=== PATIENT | female | born 1970 | race American Indian/Alaskan Native ===

== ENCOUNTER 2017-04-08 22:45 | Emergency (ER) | payer SELFPAY ==
[2017-04-08] MEDS ORDERED: NACL 0.9% 1000 ML 1,000 ML IV ONE (23:22)
[2017-04-08] MEDS ORDERED: BENADRYL IV ONE (23:22)
[2017-04-08] MEDS ORDERED: ZOFRAN IV ONE (23:22)
[2017-04-08] MEDS ORDERED: SUBLIMAZE IV ONE (23:22)
[2017-04-08] MEDS ORDERED: PEPCID IV ONE (23:27)
--- NOTE | 2017-04-08 23:27 | Emergency Department Report ---
HPI - General Chief Complaint: Abdominal Pain Time Seen by Provider: 04/08/17 23:12 - HPI HPI: Room 39 The patient is a 46-year-old female presenting with a chief complaint of abdominal pain. The patient states for the past 4 days she has had a constant pain in the upper abdomen is burning in nature associated with nausea vomiting. Patient denies diarrhea. Patient denies fever. The patient went to [facility] yesterday and states she had a plain film x-ray and labs performed. Patient was diagnosed with tramadol and Zofran she states this has not helped her symptoms Location: Upper abdomen Duration: [see above] Quality: [see above] Severity: [see above] Modifying factors: [see above] Context: [see above] Mode of transportation: [not driving] ED Past Medical Hx - Past Medical History Previous Medical History?: No - Surgical History Past Surgical History?: No - Family History Family history: no significant - Social History Smoking Status: Current Every Day Smoker Substance Use Type: None - Medications Home Medications: Home Medications Medication Instructions Recorded Confirmed Last Taken Type Ciprofloxacin HCl [Ciprofloxacin 500 mg PO Q12HR #20 tab 04/09/17 Unknown Rx TAB] Docusate Sodium [Colace] 100 mg PO BID PRN #30 capsule 04/09/17 Unknown Rx HYDROcodone/APAP 5-325 [[place] 1 - 2 each PO Q6HR PRN #20 tablet 04/09/17 Unknown Rx 5/325] Promethazine [Phenergan TAB] 25 mg PO Q6HR PRN #20 tab 04/09/17 Unknown Rx Promethazine [Phenergan] 25 mg [place] Q6HR PRN #10 supp.rect 04/09/17 Unknown Rx metroNIDAZOLE [Flagyl] 500 mg PO Q8HR #30 tablet 04/09/17 Unknown Rx ED Review of Systems ROS: Stated complaint: ABD PAIN Other details as noted in HPI Comment: All other systems reviewed and negative Constitutional: denies: fever Eyes: denies: eye pain, eye discharge, vision change ENT: denies: ear pain, throat pain Respiratory: denies: cough, shortness of breath, wheezing Cardiovascular: denies: chest pain, palpitations Endocrine: no symptoms reported Gastrointestinal: abdominal pain, nausea, vomiting. denies: diarrhea Genitourinary: denies: urgency, dysuria, discharge Musculoskeletal: denies: back pain, joint swelling, arthralgia Skin: denies: rash, lesions Neurological: denies: headache, weakness, paresthesias Psychiatric: denies: anxiety, depression Hematological/Lymphatic: denies: easy bleeding, easy bruising Physical Exam - Physical Exam Vital Signs: Vital Signs 04/08/17 23:03 Temperature 98.8 F Pulse Rate 79 Respiratory 26 H Rate Blood Pressure 135/73 O2 Sat by Pulse 96 Oximetry Physical Exam: GENERAL: The patient is well-developed well-nourished female lying on stretcher appearing to be in moderate discomfort. HEENT: Normocephalic. Atraumatic. Extraocular motions are intact. Patient has moist mucous membranes. NECK: Supple. Trachea midline CHEST/LUNGS: Clear to auscultation. There is no respiratory distress noted. HEART/CARDIOVASCULAR: Regular. There is no tachycardia. There is no gallop rub or murmur. ABDOMEN: Abdomen is soft, with tenderness to palpation in the right upper quadrant, epigastric and left upper quadrants. There is no tenderness to palpation of the left lower quadrant, suprapubic or right lower quadrant. Patient has normal bowel sounds. There is no abdominal distention. SKIN: There is no rash. There is no edema. There is no diaphoresis. NEURO: The patient is awake, alert, and oriented. The patient is cooperative. The patient has normal speech MUSCULOSKELETAL: There is no CVA tenderness. There is no evidence of acute injury. ED Course Vital Signs 04/08/17 23:03 Temperature 98.8 F Pulse Rate 79 Respiratory 26 H Rate Blood Pressure 135/73 O2 Sat by Pulse 96 Oximetry - Consultations Consultation #1: 04/08/17 23:39 [facility] [place] reports the patient had a plain film abdominal x-ray which revealed a normal bowel gas pattern ED Medical Decision Making - Lab Data Result diagrams: 04/08/17 23:24 04/08/17 23:24 Laboratory Tests 04/08/17 04/08/17 04/08/17 23:24 23:24 23:24 WBC 5.6 RBC 3.51 L Hgb 9.2 L Hct 29.1 L MCV 83 MCH 26 L MCHC 32 RDW 16.1 H Plt Count 399 Lymph % (Auto) 28.2 Richardson % (Auto) 13.3 H Eos % (Auto) 1.1 Baso % (Auto) 1.0 Lymph # 1.6 Richardson # 0.7 Eos # 0.1 Baso # 0.1 Seg Neutrophils % 56.4 Seg Neutrophils # 3.2 Sodium 139 Potassium 3.1 L Chloride 102.6 Carbon Dioxide 15 L Anion Gap 25 BUN 7 Creatinine 0.8 Estimated GFR > 60 BUN/Creatinine Ratio 8.75 Glucose 100 Calcium 9.2 Total Creatine Kinase 111 CK-MB (CK-2) < 1.0 CK-MB (CK-2) Rel Index 0.9 Troponin T < 0.010 Amylase 32 Lipase 23 HCG, Quant Urine Color Urine Turbidity Urine pH Ur Specific [place] Urine Protein Urine Glucose (UA) Urine Ketones Urine Blood Urine Nitrite Urine Bilirubin Urine Urobilinogen Ur Leukocyte Esterase Urine WBC (Auto) Urine RBC (Auto) U Epithel Cells (Auto) Urine Mucus 04/08/17 04/09/17 23:27 00:15 WBC RBC Hgb Hct MCV MCH MCHC RDW Plt Count Lymph % (Auto) [place] % (Auto) Eos % (Auto) Baso % (Auto) Lymph # Richardson # Eos # Baso # Seg Neutrophils % Seg Neutrophils # Sodium Potassium Chloride Carbon Dioxide Anion Gap BUN Creatinine Estimated GFR BUN/Creatinine Ratio Glucose Calcium Total Creatine Kinase CK-MB (CK-2) CK-MB (CK-2) Rel Index Troponin T Amylase Lipase HCG, Quant < 2 Urine Color Yellow Urine Turbidity Clear Urine pH 6.0 Ur Specific [place] 1.016 Urine Protein 30 mg/dl Urine Glucose (UA) Neg Urine Ketones 80 Urine Blood Mod Urine Nitrite Neg Urine Bilirubin Neg Urine Urobilinogen 2.0 Ur Leukocyte Esterase Neg Urine WBC (Auto) 2.0 Urine RBC (Auto) 3.0 U Epithel Cells (Auto) 4.0 Urine Mucus Few - EKG Data -: EKG Interpreted by Nd EKG shows normal: sinus rhythm Rate: normal - EKG Data When compared to previous EKG there are: previous EKG unavailable Interpretation: nonspecific ST-T wave susan (T-wave inversions in lead V2, V3) - Radiology Data Radiology results: report reviewed (CT abdomen and pelvis), image reviewed (CT abdomen and pelvis) CT abdomen and pelvis (read by radiologist)-heterogeneous enlargement of the uterus with multiple fibroids. Trace fluid in the pelvis within physiologic limits. Mild wall thickening of the ascending colon and proximal transverse colon concerning for mild segmental colitis. Moderate stool in the colon. No bowel obstruction. Appendix is not visualized. However there is no pericecal stranding or fluid to suggest acute inflammation. No other gross acute findings. - Differential Diagnosis pancreatitis, cholecystitis, peptic ulcer disease, bowel perforation, ACS Critical care attestation.: If time is entered above; I have spent that time in minutes in the direct care of this critically ill patient, excluding procedure time. ED Disposition Clinical Impression: Acute abdominal pain, Acute colitis, Uterine fibroid Disposition: DISCHARGED TO HOME OR SELFCARE Is pt being admited?: No Does the pt Need Aspirin: No Condition: Stable Instructions: Abdominal Pain (ED) Additional Instructions: Return to the emergency department immediately should you develop worsening symptoms, fever, inability to tolerate food or liquid or any other concerns. Prescriptions: Ciprofloxacin HCl [Ciprofloxacin TAB] 500 mg PO Q12HR #20 tab Docusate Sodium [Colace] 100 mg PO BID PRN #30 capsule PRN Reason: Constipation HYDROcodone/APAP 5-325 [[place] 5/325] 1 - 2 each PO Q6HR PRN #20 tablet PRN Reason: Pain metroNIDAZOLE [Flagyl] 500 mg PO Q8HR #30 tablet Promethazine [Phenergan TAB] 25 mg PO Q6HR PRN #20 tab PRN Reason: Nausea Promethazine [Phenergan] 25 mg [place] Q6HR PRN #10 supp.rect PRN Reason: Vomiting Referrals: PRIMARY CARE, [Primary Care Provider] - 3-5 Days FOX GRANADOS MD [Staff Physician] - 3-5 Days (Dr Granados is a model and dye person. Please follow up with him for further evaluation) Time of Disposition: 02:17
[2017-04-08 23:39] LABS: Eosinophils % (Auto) 1.1 % (0.0-4.3); Hematocrit 29.1 % (30.3-42.9); Hemoglobin 9.2 gm/dl (10.1-14.3); Mean Corpuscular HGB Conc 32 % (30-34); Mean Corpuscular Hemoglobin 26 pg (28-32); Mean Corpuscular Volume 83 fl (79-97); Platelet Count 399 K/mm3 (140-440); Red Blood Count 3.51 M/mm3 (3.65-5.03); Red Cell Distribution Width 16.1 % (13.2-15.2); White Blood Count 5.6 K/mm3 (4.5-11.0)
[2017-04-08 23:53] LABS: Amylase 32 units/L (27-131); Anion Gap 25 mmol/L; BUN/Creatinine Ratio 8.75; Blood Urea Nitrogen 7 mg/dL (7-17); Calcium 9.2 mg/dL (8.4-10.2); Carbon Dioxide 15 mmol/L (22-30); Chloride 102.6 mmol/L (98-107); Glucose 100 mg/dL (65-100); Lipase 23 units/L (13-60); Potassium 3.1 mmol/L (3.6-5.0); Sodium 139 mmol/L (137-145)
[2017-04-08 23:59] LABS: Creatine Kinase 111 units/L (30-135)
[2017-04-09 00:03] LABS: Creatine Kinase MB < 1.0 ng/mL (0.0-4.0)
[2017-04-09 00:35] LABS: Bilirubin,Urine NEG (Negative); Blood,Urine MOD (Negative); Ketones,Urine 80 mg/dL (Negative); Leukocyte Esterase,Urine NEG (Negative); Mucus,Urine FEW /HPF; Nitrite,Urine NEG (Negative)
[2017-04-09] MEDS ORDERED: NACL ONE (01:05)
--- NOTE | 2017-04-09 02:09 | Cat Scan Report ---
FINAL REPORT EXAM: CT ABDOMEN PELVIS W CON HISTORY: severe upper abdominal pain, n/v pelvic pain too COMPARISON: None available. TECHNIQUE: Contiguous axial images were obtained. Additional sagittal and coronal reformatted images were obtained. Administration of IV contrast given per institution protocol. Images submitted for interpretation. 100 cc Omnipaque 300. FINDINGS: Lung bases are clear. No calcified gallstones. Common bile duct at the level the pancreatic head measures 5 millimeters within normal limits. Mild fatty infiltration of the liver. Spleen and pancreas are grossly unremarkable. No adrenal mass. No solid renal lesion. No hydronephrosis. Aorta and IVC normal in caliber. Mild to moderate calcified plaque along the aorta. Stomach is decompressed. Moderate stool in the colon. No bowel obstruction. Borderline wall thickening of the ascending colon and proximal transverse colon. Findings are concerning for mild segmental colitis. Appendix is not visualized. However, there is no pericecal stranding or fluid to suggest acute inflammation. Urinary bladder is unremarkable. Multiple uterine fibroids. Uterus is enlarged measuring 12 x 7 by 9 centimeters. One of the largest fibroids at the left lateral margin of the uterine body measuring 6.2 x 5.0 centimeters. At the fundal margin the uterus there is a fibroid measuring 5.0 x 4.2 centimeters. Trace fluid in the pelvis within physiologic limits. Ovaries are not well visualized. Bony pelvis and lumbar spine are grossly intact. IMPRESSION: Heterogeneous enlargement of the uterus with multiple fibroids. Trace fluid in the pelvis within physiologic limits. Mild wall thickening of the ascending colon and proximal transverse colon concerning for mild segmental colitis. Moderate stool in the colon. No bowel obstruction. Appendix is not visualized. However, there is no pericecal stranding or fluid to suggest acute inflammation. No other gross acute findings.
[2017-04-09 02:42] VITALS: BP 157/90
== END 2017-04-09 02:35 | disposition home or self-care (01) ==
LOC: ED 22:45
DX: K52.9 Noninfective gastroenteritis and colitis, unspecified (principal); D25.9 Leiomyoma of uterus, unspecified; F17.200 Nicotine dependence, unspecified, uncomplicated
CPT/HCPCS: 36415; 74177; 80048; 81001; 82150; 82550; 82553; 83690; 84484; 84702; 85025; 93005; 93010; 96361; 96374; 96375; 99284; J1200; J2405; J3010; J7030; Q9967

== ENCOUNTER 2022-04-21 02:18 | Emergency (ER) | payer MEDICAID ==
[2022-04-21 02:55] LABS: Basophils # (Auto) 0.1 K/mm3 (0.0-0.1); Basophils % (Auto) 0.9 % (0.0-1.8); Eosinophils # (Auto) 0.1 K/mm3 (0.0-0.4); Eosinophils % (Auto) 1.5 % (0.0-4.3); Hematocrit 43.2 % (30.3-42.9); Hemoglobin 14.2 gm/dl (10.1-14.3); Lymphocytes # (Auto) 2.3 K/mm3 (1.2-5.4); Lymphocytes % (Auto) 29.9 % (13.4-35.0); Mean Corpuscular HGB Conc 33 % (30-34); Mean Corpuscular Volume 92 fl (79-97); Monocytes # (Auto) 0.5 K/mm3 (0.0-0.8); Monocytes % (Auto) 5.8 % (0.0-7.3); Platelet Count 336 K/mm3 (140-440); Red Blood Count 4.68 M/mm3 (3.65-5.03); Red Cell Distribution Width 12.3 % (13.2-15.2)
[2022-04-21 03:06] LABS: Bacteria,Urine 1+ /HPF (Negative); Bilirubin,Urine NEG (Negative); Blood,Urine MOD (Negative); Color,Urine Yellow (Yellow); Mucus,Urine FEW /HPF; Urobilinogen,Urine < 2.0 mg/dL (<2.0)
[2022-04-21 03:14] LABS: Alanine Aminotransferase 9 units/L (7-56); Albumin 4.6 g/dL (3.9-5); BUN/Creatinine Ratio 11; Blood Urea Nitrogen 10 mg/dL (7-17); Calcium 10.4 mg/dL (8.4-10.2); Hemolysis Index 5
[2022-04-21] MEDS ORDERED: ONDANSETRON 4 MG ODT TAB PO ONE (09:02)
[2022-04-21] MEDS ORDERED: ALUM-MAG HYDROXIDE-SIMETHICONE 200-200-20MG/5ML ORAL LIQD 30 ML PO ONE (09:03)
[2022-04-21] MEDS ORDERED: FAMOTIDINE 20 MG TAB PO ONE (09:03)
[2022-04-21] MEDS ORDERED: LIDOCAINE VISCOUS 2% 15 ML ORAL LIQD PO ONE (09:03)
[2022-04-21 10:41] VITALS: BP 179/100
--- NOTE | 2022-04-21 10:54 | Emergency Department Report ---
ED Abdominal Pain HPI - General Chief Complaint: Abdominal Pain Stated Complaint: STOMACH PAIN Time Seen by Provider: 04/21/22 09:17 Source: patient Mode of arrival: Ambulatory Limitations: No Limitations - Related Data Previous Rx's Medication Instructions Recorded Last Taken Type Ciprofloxacin HCl [Ciprofloxacin 500 mg PO Q12HR #20 tab 04/09/17 Unknown Rx TAB] Docusate Sodium [Colace] 100 mg PO BID PRN #30 capsule 04/09/17 Unknown Rx HYDROcodone/APAP 5-325 [[place] 1 - 2 each PO Q6HR PRN #20 tablet 04/09/17 Unknown Rx 5/325] Promethazine [Phenergan TAB] 25 mg PO Q6HR PRN #20 tab 04/09/17 Unknown Rx Promethazine [Phenergan] 25 mg [place] Q6HR PRN #10 supp.rect 04/09/17 Unknown Rx metroNIDAZOLE [Flagyl] 500 mg PO Q8HR #30 tablet 04/09/17 Unknown Rx Allergies Allergy/AdvReac Type Severity Reaction Status Date / Time No Known Allergies Allergy Unverified 04/08/17 23:09 ED Review of Systems ROS: Stated complaint: STOMACH PAIN Other details as noted in HPI Comment: All other systems reviewed and negative ED Past Medical Hx - Past Medical History Previous Medical History?: Yes Hx Hypertension: Yes - Surgical History Past Surgical History?: No - Family History Family history: no significant - Social History Smoking Status: Never Smoker Substance Use Type: Marijuana - Medications Home Medications: Home Medications Medication Instructions Recorded Confirmed Last Taken Type Ciprofloxacin HCl [Ciprofloxacin 500 mg PO Q12HR #20 tab 04/09/17 Unknown Rx TAB] Docusate Sodium [Colace] 100 mg PO BID PRN #30 capsule 04/09/17 Unknown Rx HYDROcodone/APAP 5-325 [[place] 1 - 2 each PO Q6HR PRN #20 tablet 04/09/17 Unknown Rx 5/325] Promethazine [Phenergan TAB] 25 mg PO Q6HR PRN #20 tab 04/09/17 Unknown Rx Promethazine [Phenergan] 25 mg [place] Q6HR PRN #10 supp.rect 04/09/17 Unknown Rx metroNIDAZOLE [Flagyl] 500 mg PO Q8HR #30 tablet 04/09/17 Unknown Rx ED Physical Exam - General Limitations: No Limitations General appearance: alert, in no apparent distress - Head Head exam: Present: atraumatic, normocephalic - Eye Eye exam: Present: normal appearance - ENT ENT exam: Present: mucous membranes moist - Neck Neck exam: Present: normal inspection - Respiratory Respiratory exam: Present: normal lung sounds bilaterally. Absent: respiratory distress - Cardiovascular Cardiovascular Exam: Present: regular rate, normal rhythm. Absent: systolic murmur, diastolic murmur, rubs, gallop - GI/Abdominal GI/Abdominal exam: Present: soft, normal bowel sounds - Extremities Exam Extremities exam: Present: normal inspection - Back Exam Back exam: Present: normal inspection - Neurological Exam Neurological exam: Present: alert, oriented X3 - Psychiatric Psychiatric exam: Present: normal affect, normal mood - Skin Skin exam: Present: warm, dry, intact, normal color. Absent: rash ED Course Vital Signs 04/21/22 04/21/22 02:21 10:37 Temperature 98.3 F Pulse Rate 81 64 Respiratory 18 18 Rate Blood Pressure 182/119 179/100 O2 Sat by Pulse 100 96 Oximetry - Reevaluation(s) Reevaluation #1: 04/21/22 11:56 rx zofran zn mvi pain meds ED Medical Decision Making - Lab Data Result diagrams: 04/21/22 02:40 04/21/22 02:40 - Radiology Data Radiology results: report reviewed, image reviewed - Medical Decision Making Labs 04/21/22 04/21/22 04/21/22 02:40 02:40 02:40 WBC 7.8 RBC 4.68 Hgb 14.2 Hct 43.2 H MCV 92 MCH 30 MCHC 33 RDW 12.3 L Plt Count 336 Lymph % (Auto) 29.9 [place] % (Auto) 5.8 Eos % (Auto) 1.5 Baso % (Auto) 0.9 Lymph # (Auto) 2.3 [place] # (Auto) 0.5 Eos # (Auto) 0.1 Baso # (Auto) 0.1 Seg Neutrophils % 61.9 Seg Neutrophils # 4.8 Sodium 140 Potassium 3.8 Chloride 100.3 Carbon Dioxide 23 Anion Gap 21 BUN 10 Creatinine 0.9 Estimated GFR > 60 BUN/Creatinine Ratio 11 Glucose 141 H Calcium 10.4 H Total Bilirubin 0.60 AST 16 ALT 9 Alkaline Phosphatase 62 Total Protein 8.3 H Albumin 4.6 Albumin/Globulin Ratio 1.2 Amylase 50 Lipase 17 HCG, Qual Negative Urine Color Urine Turbidity Urine pH Ur Specific [place] Urine Protein Urine Glucose (UA) Urine Ketones Urine Blood Urine Nitrite Urine Bilirubin Urine Urobilinogen Ur Leukocyte Esterase Urine WBC (Auto) Urine RBC (Auto) U Epithel Cells (Auto) Urine Bacteria (Auto) Urine Mucus 04/21/22 Unknown WBC RBC Hgb Hct MCV MCH MCHC RDW Plt Count Lymph % (Auto) [place] % (Auto) Eos % (Auto) Baso % (Auto) Lymph # (Auto) [place] # (Auto) Eos # (Auto) Baso # (Auto) Seg Neutrophils % Seg Neutrophils # Sodium Potassium Chloride Carbon Dioxide Anion Gap BUN Creatinine Estimated GFR BUN/Creatinine Ratio Glucose Calcium Total Bilirubin AST ALT Alkaline Phosphatase Total Protein Albumin Albumin/Globulin Ratio Amylase Lipase HCG, Qual Urine Color Yellow Urine Turbidity Slightly-cloudy Urine pH 6.0 Ur Specific [place] 1.016 Urine Protein 100 mg/dl Urine Glucose (UA) Neg Urine Ketones Tr Urine Blood Mod Urine Nitrite Neg Urine Bilirubin Neg Urine Urobilinogen < 2.0 Ur Leukocyte Esterase Tr Urine WBC (Auto) 3.0 Urine RBC (Auto) 3.0 U Epithel Cells (Auto) 10.0 Urine Bacteria (Auto) 1+ Urine Mucus Few Vital Signs 04/21/22 04/21/22 02:21 10:37 Temperature 98.3 F Pulse Rate 81 64 Respiratory 18 18 Rate Blood Pressure 182/119 179/100 O2 Sat by Pulse 100 96 Oximetry Critical care attestation.: If time is entered above; I have spent that time in minutes in the direct care of this critically ill patient, excluding procedure time. ED Disposition Clinical Impression: Fibroid, Elevated blood pressure reading Abdominal pain Qualifiers: Abdominal location: unspecified location Qualified Code(s): R10.9 - Unspecified abdominal pain Disposition: 01 HOME / SELF CARE / HOMELESS Is pt being admited?: No Does the pt Need Aspirin: No Condition: Stable Instructions: Uterine Fibroids, Abdominal Pain (ED) Additional Instructions: over the counter motrin or tylenol for pain follow up as we discussed referrals below diet and activity as tolerated Referrals: DELVIN MENSAH MD [Primary Care Provider] - 3-5 Days FOX HARKINS MD [Staff Physician] - 3-5 Days GELY RAMESH MD [Staff Physician] - 3-5 Days Time of Disposition: 10:54
--- NOTE | 2022-04-21 11:54 | Cat Scan Report ---
CT ABDOMEN AND PELVIS WITHOUT CONTRAST HISTORY: abd pain COMPARISON: None TECHNIQUE: Routine abdominal and pelvic CT exam performed without contrast. Lack of intravenous cont rast limits evaluation of the vascular and solid organs.. All CT scans at this location are performed using CT dose reduction for ALARA by means of automated exposure control. FINDINGS: CT ABDOMEN: Lung Bases: No significant abnormality. Liver: No significant abnormality. Biliary: No significant abnormality. Spleen: No significant abnormality. Unenlarged. Pancreas: No significant abnormality. Adrenals: No significant abnormality. Kidneys: No significant abnormality. Lymphatics: No lymphadenopathy. Vasculature: Atherosclerotic but nonaneurysmal abdominal aorta. Bowel/Peritoneum: No significant abnormality. No free air. No free fluid. Normal appendix. CT PELVIC: : Uterus is enlarged containing multiple fibroids. IUD is seen in the uterus. Lymphatics: No lymphadenopathy. Osseous Structures: No aggressive appearing osseous lesions. Additional Findings: None IMPRESSION: 1. No acute findings. 2. Enlarged fibroid uterus. Signer Name: Demond Cobb MD Signed: 04/21/2022 11:50 AM Workstation Name: [id number]
== END 2022-04-21 12:09 | disposition home or self-care (01) ==
LOC: ED 02:18
DX: D21.9 Benign neoplasm of connective and other soft tissue, unspecified (principal); I10 Essential (primary) hypertension; R10.9 Unspecified abdominal pain; F12.90 Cannabis use, unspecified, uncomplicated
CPT/HCPCS: 36415; 74176; 80053; 81001; 82150; 83690; 84703; 85025; 99284; J3490; Q0162